=== PATIENT | female | born 1945 | race Caucasian/White ===

== ENCOUNTER → 2016-10-09 | Outpatient (CLI) | payer OTHER ==
[~2016-10-09] MED LIST: ACTONEL150 MG; ADVAIR 250-501 EACH IH; ALBUTEROL17 GM INH; ALLEGRA PO; AMIODARONE HCL400 MG PO; AMITRYPTYLINE PO; ASPIRIN81 M1 PO; ASPIRINEC PO; ATIVAN PO; AUGMENTIN PO; BACLOFEN10 MG PO; BUMEX PO; CALTRATE 600 PO; CENTRUM PO; CENTRUM SILVER PO; CERTAGEN PO; COREG PO; COUMADIN; COUMADIN2.5 MG PO; COUMADIN5 MG PO; DIOVAN80 M1 PO; DUONEB 2.5-0.5 M3 ML NEB; FOLIC ACID1 MG PO; FOSAMAX PO; FUROSEMIDE40 MG PO; IRON325 ( 651 PO; KCL PO; LASIX PO; LEVOTHYROXINE50 MC1 PO; LEVOTHYROXINE50 MCG PO; LEVOXYL50 MCG PO; LEXAPRO PO; LISINOPRIL PO; LOPRESSOR PO; LORTAB 101 TAB 10/5 PO; MAG-OXIDE400 MG PO; METOPROLOL SUCC50 MG PO; MOBIC PO; NASONEX17 GM; NITROGYLCERIN SUBLINGUAL; OMEPRAZOLE40 MG PO; OYSTER CALCIUM500 MG PO; PATIENT'S PHARMACY; PLAVIX PO; PREDNISONE PO; RANITIDINE HCL150 M1 PO; RHINOCORT AQUA8.6 GM; RISPERIDONE PO; SYMBICORT INH; SYNTHROID PO; TOPROL XL50 MG PO; VALIUM2 MG PO; VIACTIV SOFT C1 EACH PO; ZOCOR20 MG PO
--- NOTE | ~2016-10-09 | MY11 ---
[facility] A Service of [facility] & [facility] [place] RADIOLOGY TEXT RESULTS PATIENT: JANEE ROSA LOCATION: [facility] : 43 UNIT #: [id number] AGE: [address]: Liliana Vaughn MD SEX: F ORDER DR: [id number] [facility] [address] [place], [place] [address] [id number] O MR#: [id number] Acc #: [id number] NAME: JANEE ROSA : 1945 SEX: F STUDY DATE/TIME: 10/09/2016 10:56 UNIT: [facility] ROOM: STUDY DESCRIPTION: MY Mammogram Screening [facility] [place] Attending Physician: Liliana Vaughn M.D. Ordering Physician: Liliana Vaughn M.D. Primary Care Physician: Liliana Vaughn M.D. MEDICAL IMAGING REPORT This report is preliminary unless electronic signature is present EXAM Screening mammogram 10/09 INDICATIONS 71-year-old with no personal or family history of breast cancer. No current complaints. TECHNIQUE Routine digital screening views of both breasts were obtained. Study was reviewed with an FDA-approved CAD device. COMPARISON 09/29/2015, 09/17/2014, 09/15/2013 FINDINGS Breast parenchyma shows scattered fibroglandular densities. No new masses or suspicious microcalcifications. IMPRESSION Benign mammogram. Routine screen in 1 year is recommended. Patient's over the age of 40 are entered into a reminder system with target due date for the next mammogram. A result letter will be sent to the patient. BIRADS: 2 Benign findings. Dictated by... Yordan Maxwell Jr., M.D. THIS IS AN ELECTRONICALLY VERIFIED REPORT Yordan Maxwell Jr., M.D. at 10/09/2016 5:00 PM [facility] A Service [facility] [place] RADIOLOGY TEXT RESULTS PATIENT: JANEE ROSA LOCATION: [facility] : 43 UNIT #: [id number] AGE: [address]: Liliana Vaughn MD SEX: F ORDER DR: BLOSSOM/hnery TD: 10/09/2016 15:05 JOB #: [id number] MEDICAL IMAGING REPORT COPY
== END | disposition home or self-care (01) ==
LOC: CWCC 10:25
DX: Z12.31 Encounter for screening mammogram for malignant neoplasm of breast (principal)
CPT/HCPCS: G0202